=== PATIENT | male | born 1990 | race Two or more races ===

== ENCOUNTER 2024-02-13 07:37 | Emergency (ER) | payer MEDICAID ==
[~2024-02-13] VITALS: Ht 182.9 cm; Wt 126.6 kg
[2024-02-13 08:18] VITALS: BP 125/78; PULSE 103; RESP 18; TEMP 99.1; O2SAT 96
[2024-02-13] MEDS ORDERED: AZIT500T66 PO (08:34)
[2024-02-13] MEDS ORDERED: LIDO2SOL26 MT (08:34)
== END 2024-02-13 08:41 | disposition home or self-care (01) ==
LOC: ER 07:37
DX: J03.90 Acute tonsillitis, unspecified (principal); F17.210 Nicotine dependence, cigarettes, uncomplicated; F12.10 Cannabis abuse, uncomplicated